=== PATIENT | female | born 1965 | race American Indian/Alaskan Native ===

== ENCOUNTER 2017-03-05 15:07 | Outpatient (CLI) | payer OTHER | END 2017-03-05 15:08 | disposition home or self-care (01) | LOC: LABHHL 15:07 | PROVIDERS: ATTEND Surgery | DX: N60.31 Fibrosclerosis of right breast (principal); R92.0 Mammographic microcalcification found on diagnostic imaging of breast; N63 Unspecified lump in breast; I10 Essential (primary) hypertension | CPT/HCPCS: 88305 ==